=== PATIENT | male | born 1960 | race Caucasian/White ===

== ENCOUNTER 2016-06-25 09:37 | Emergency (ER) | payer OTHER | END 2016-06-25 12:40 | disposition home or self-care (01) | LOC: ER1 09:37 | DX: M54.42 Lumbago with sciatica, left side (principal); I25.10 Atherosclerotic heart disease of native coronary artery without angina pectoris; E11.9 Type 2 diabetes mellitus without complications; I10 Essential (primary) hypertension; Z90.49 Acquired absence of other specified parts of digestive tract | CPT/HCPCS: 72131; 73502; 96374; 96375; 99283; J2270; J2405 ==

== ENCOUNTER 2016-07-23 10:48 | Emergency (ER) | payer OTHER | END 2016-07-23 13:52 | disposition home or self-care (01) | LOC: ER1 10:48 | DX: G89.29 Other chronic pain (principal); M54.40 Lumbago with sciatica, unspecified side; E78.5 Hyperlipidemia, unspecified; I10 Essential (primary) hypertension; Z79.899 Other long term (current) drug therapy | CPT/HCPCS: 96372; 99283; J1100; J1885 ==

== ENCOUNTER → 2020-05-13 | Outpatient (CLI) | payer OTHER ==
[~2020-05-13] MED LIST: AMARYL 2MG TABLE2 MG PO; ASPIRIN CHEWABL81 MG PO; ATORVASTATIN CA80 MG PO; CEPHALEXIN500 MG PO; COZAAR 50MG TAB50 MG PO; FLOMAX 0.4 MG0.4 MG PO; GABAPENTIN100 MG PO; ISOSORBIDE MONO30 MG PO; METFORMIN HCL1000 MG PO; METOPROLOL SUC100 MG PO; NITROGLYCERIN0.4 MG SL; OMEPRAZOLE20 MG PO; TESTOSTERO200 MG/1 M IM
== END ==
LOC: HEART 5 08:04
DX: I25.10 Atherosclerotic heart disease of native coronary artery without angina pectoris (principal); R07.9 Chest pain, unspecified; R94.39 Abnormal result of other cardiovascular function study; R93.1 Abnormal findings on diagnostic imaging of heart and coronary circulation; I34.0 Nonrheumatic mitral (valve) insufficiency
CPT/HCPCS: 78452; 93306; A9502

== ENCOUNTER → 2020-06-18 | Outpatient (CLI) | payer OTHER ==
[2020-06-18 13:30] LABS: HEMOGLOBIN 15.5 gm/dl (14.0-17.5); RED BLOOD COUNT 5.03 M/UL (4.20-5.50); WHITE BLOOD COUNT 11.4 K/UL (4.5-11.0)
[2020-06-18 13:55] LABS: BUN/CREATININE RATIO 17 (0-10)
== END ==
LOC: LAB 13:02
PROVIDERS: Internal Medicine Interventional Cardiology
DX: R94.39 Abnormal result of other cardiovascular function study (principal); R07.9 Chest pain, unspecified; I25.10 Atherosclerotic heart disease of native coronary artery without angina pectoris; I10 Essential (primary) hypertension; E78.00 Pure hypercholesterolemia, unspecified; E11.40 Type 2 diabetes mellitus with diabetic neuropathy, unspecified
CPT/HCPCS: 36415; 80048; 85025; 85610; 85730; 93005

== ENCOUNTER → 2020-06-25 | Outpatient (CLI) | payer OTHER ==
[~2020-06-25] VITALS: Ht 172.7 cm; Wt 84.8 kg
== END ==
LOC: CATH 09:54
DX: I25.118 Atherosclerotic heart disease of native coronary artery with other forms of angina pectoris (principal); I25.82 Chronic total occlusion of coronary artery; I10 Essential (primary) hypertension; E11.40 Type 2 diabetes mellitus with diabetic neuropathy, unspecified; E78.5 Hyperlipidemia, unspecified; Z79.84 Long term (current) use of oral hypoglycemic drugs; Z79.82 Long term (current) use of aspirin; Z20.822 Contact with and (suspected) exposure to COVID-19; Z79.899 Other long term (current) drug therapy; Z82.49 Family history of ischemic heart disease and other diseases of the circulatory system
CPT/HCPCS: 82962; 85347; 87635; 93571; 93572; 99152; 99153; C1769; C1887; C1894; J0153; J1644; J2250; J3010; J7030; Q9967

== ENCOUNTER → 2021-05-19 | Outpatient (CLI) | payer OTHER ==
[2021-05-19 12:09] LABS: HEMOGLOBIN 15.9 gm/dl (14.0-17.5); RED BLOOD COUNT 5.06 M/UL (4.20-5.50)
[2021-05-19 12:58] LABS: BUN/CREATININE RATIO 18 (0-10)
== END ==
LOC: RT 11:19
PROVIDERS: Internal Medicine Interventional Cardiology
DX: Z01.818 Encounter for other preprocedural examination (principal); R94.39 Abnormal result of other cardiovascular function study; M19.90 Unspecified osteoarthritis, unspecified site; E78.00 Pure hypercholesterolemia, unspecified; R07.9 Chest pain, unspecified; I10 Essential (primary) hypertension; E11.40 Type 2 diabetes mellitus with diabetic neuropathy, unspecified; I25.10 Atherosclerotic heart disease of native coronary artery without angina pectoris
CPT/HCPCS: 36415; 80048; 85025; 85610; 85730; 93005

== ENCOUNTER → 2021-07-26 | Outpatient (CLI) | payer OTHER ==
[~2021-07-26] MED LIST changes: +DEXILANT30 MG PO; +DEXILANT60 MG PO; +FINASTERIDE5 MG PO; +LINZESS145 MCG PO; +SIMVASTATIN20 MG PO
== END ==
LOC: HEART 5 14:11
DX: R07.9 Chest pain, unspecified (principal); I25.10 Atherosclerotic heart disease of native coronary artery without angina pectoris; Z95.1 Presence of aortocoronary bypass graft; I08.3 Combined rheumatic disorders of mitral, aortic and tricuspid valves
CPT/HCPCS: 93306

== ENCOUNTER → 2021-09-06 | Outpatient (CLI) | payer OTHER | LOC: MRI 09-05 14:30 | DX: Z00.00 Encounter for general adult medical examination without abnormal findings (principal); M50.21 Other cervical disc displacement, high cervical region; M48.02 Spinal stenosis, cervical region; E04.1 Nontoxic single thyroid nodule | CPT/HCPCS: 36415; 72141; 82565; 84520; A9577 ==

== ENCOUNTER → 2021-09-14 | Outpatient (CLI) | payer OTHER | LOC: EXRD 15:22 | DX: E04.2 Nontoxic multinodular goiter (principal) | CPT/HCPCS: 76536 ==